=== PATIENT | female | born 1990 | race Caucasian/White ===

== ENCOUNTER 2022-11-18 11:05 | Inpatient (IN) ==
[2022-11-18] MEDS ORDERED: Lactated Ringers 1000 ml BAG 1,000 ML IV ONE (11:24)
[2022-11-18] MEDS ORDERED: Penicillin G Potassium IV 5,000,000 UNITS in NS 0.9% 100 ml BAG 100 ML IVPB ONE (11:24)
[2022-11-18 12:16] LABS: Hematocrit 33.8 % (35-45); Hemoglobin 11.5 g/dL (11.5-14.3); Mean Corpuscular Hemoglobin 31.1 pg (27-33); Mean Corpuscular Hgb Conc 33.9 g/dL (31-36); Mean Corpuscular Volume 91.7 fL (80-97); Red Blood Count 3.69 10^6/uL (3.63-4.92); Red Cell Distribution Width 14.4 % (12-17); White Blood Count 5.4 10^3/uL (3.8-11.8)
[2022-11-18 12:33] LABS: Urine Benzodiazepine Screen None Detected (None Detect); Urine Cannabinoids Screen None Detected (None Detect); Urine Opiates Screen None Detected (None Detect)
[2022-11-18 13:36] LABS: ABS Lymphocytes 1.7 10^3/uL (1.0-4.8); ABS Monocytes 0.6 10^3/uL (0.0-0.9); ABS Neutrophils 3.1 10^3/uL (1.5-7.6); Eosinophil % 0.4 %; Lymphocyte % 31.6 %; Mean Platelet Volume 11.5 fL (7.5-11.2); Platelet Count 169 10^3/uL (150-450)
[2022-11-18] MEDS: Penicillin G Potassium IV 3,000,000 UNITS in NS 0.9% 100 ml BAG 100 ML IVPB SCH ×2 (16:06→20:03)
[2022-11-19] MEDS: Penicillin G Potassium IV 3,000,000 UNITS in NS 0.9% 100 ml BAG 100 ML IVPB SCH ×2 (00:06→04:20)
[2022-11-19] MEDS ORDERED: Oxytocin in LR 20,000 MILLI.UNIT/1,000 ML BAG IV ONE (07:17)
[2022-11-19] MEDS ORDERED: Measles, Mumps,Rubella VACC 0.5 ML/VIAL SUBCUT ONE (08:07)
[2022-11-19] MEDS ORDERED: Tranexamic Acid 1,000 MG in NS 0.9% 50 ML IV ONE (08:15)
[2022-11-19] MEDS ORDERED: Oxytocin in LR 20,000 MILLI.UNIT/1,000 ML BAG IV SCH (08:15)
[2022-11-19] MEDS ORDERED: Lactated Ringers 1000 ml BAG 1,000 ML IV SCH (09:00)
[2022-11-19] MEDS: Dibucaine 1% OINT 28.35 GM TUBE PR PRN ×2 (09:08→21:00)
[2022-11-19] MEDS: Witch Hazel PAD JAR TOPICAL PRN ×2 (09:08→21:00)
[2022-11-20 07:35] LABS: ABS Lymphocytes 2.2 10^3/uL (1.0-4.8); ABS Monocytes 0.8 10^3/uL (0.0-0.9); ABS Nucleated RBC 0.01 10^3/ul; Eosinophil % 0.3 %; Hemoglobin 10.5 g/dL (11.5-14.3); Lymphocyte % 19.8 %; Mean Corpuscular Hemoglobin 31.1 pg (27-33); Mean Corpuscular Volume 91.5 fL (80-97); Mean Platelet Volume 10.5 fL (7.5-11.2); Platelet Count 149 10^3/uL (150-450); Red Blood Count 3.39 10^6/uL (3.63-4.92)
[2022-11-21 07:46] VITALS: BP 124/75
[2022-11-21] MEDS ORDERED: Measles, Mumps,Rubella VACC 0.5 ML/VIAL SUBCUT ONE (09:00)
== END 2022-11-21 12:20 | disposition home or self-care (01) | DRG 807 ==
LOC: MCHOBOUT 11:05 → MCHOB 11:22
PROVIDERS: ADMIT Midwife; ATTEND Midwife